=== PATIENT | male | born 1995 | race Caucasian/White ===

== ENCOUNTER 2021-12-06 08:53 | Outpatient (CLI) | payer BC, SELFPAY | END 2021-12-06 08:54 | disposition home or self-care (01) | PROVIDERS: Visit Provider Nurse Practitioner Family | DX: L02.91 Cutaneous abscess, unspecified (principal); R11.2 Nausea with vomiting, unspecified; K50.90 Crohn's disease, unspecified, without complications; L08.9 Local infection of the skin and subcutaneous tissue, unspecified | CPT/HCPCS: 87070 ==